=== PATIENT | female | born 1940 | race Caucasian/White ===

== ENCOUNTER 2018-01-30 18:54 | Emergency (ER) | payer MEDICARE, BC | END 2018-01-30 22:17 | disposition home or self-care (01) | LOC: D.ER 18:54 | DX: S06.0X1A Concussion with loss of consciousness of 30 minutes or less, initial encounter (principal); V43.52XA Car driver injured in collision with other type car in traffic accident, initial encounter; Y93.89 Activity, other specified; Y92.410 Unspecified street and highway as the place of occurrence of the external cause; S80.02XA Contusion of left knee, initial encounter; S50.11XA Contusion of right forearm, initial encounter; K21.9 Gastro-esophageal reflux disease without esophagitis; Z85.828 Personal history of other malignant neoplasm of skin ==